=== PATIENT | female | born 1945 | race Caucasian/White ===

== ENCOUNTER 2017-02-20 12:18 | Outpatient (CLI) | payer MEDICARE ==
[2017-02-20 13:01] LABS: Anion Gap 13 mmol/L (10-20); BUN (Urea Nitrogen) 25 mg/dL (9.8-20.1); Calc. Creatinine Clearance 0 mL/min (70-130); Calcium 9.1 mg/dL (7.8-10.44); Carbon Dioxide 25 mmol/L (23-31); Chloride 107 mmol/L (98-107); Estimated GFR-MDRD 47; Glucose 169 mg/dL (83-110); Potassium 4.3 mmol/L (3.5-5.1); Sodium 141 mmol/L (136-145)
== END 2017-02-20 12:19 | disposition home or self-care (01) ==
LOC: BURLAB 12:18
PROVIDERS: ATTEND Internal Medicine Nephrology
DX: N18.3 Chronic kidney disease, stage 3 (moderate) (principal)
CPT/HCPCS: 36415; 80048

== ENCOUNTER 2020-01-23 14:52 | Emergency (ER) | payer MEDICARE | END 2020-01-23 15:14 | disposition home or self-care (01) | LOC: BURERS 14:52 | DX: Z00.00 Encounter for general adult medical examination without abnormal findings (principal); I10 Essential (primary) hypertension | CPT/HCPCS: 99281 ==

== ENCOUNTER 2020-01-28 16:18 | Emergency (ER) | payer MEDICARE ==
[2020-01-28 16:54] LABS: Bilirubin Negative (Negative); Blood, Urine Trace (Negative); Clarity Cloudy (Clear); Glucose, Urine (Dipstick) Negative (Negative); Leukocyte Large (Negative); Nitrite Negative (Negative); Protein, Urine (Dipstick) Negative (Neg-Trace); Urobilinogen 0.2 mg/dL (Less than 2)
[2020-01-28 17:00] LABS: RBC/HPF 0-3 HPF (0-3)
[2020-01-28 17:01] LABS: Bacteria/HPF 2+ HPF (None Seen); Broad Cast None Seen LPF (None Seen); Calcium Oxalate Crystals None Seen HPF (None Seen); Cellular Cast None Seen LPF (None Seen); Epithelial Cast None Seen LPF (None Seen); Fatty Cast None Seen LPF (None Seen); Mucous/LPF None Seen LPF (<2+); Other Casts None Seen LPF (None Seen); Oval Fat Bodies/HPF None Seen HPF (None Seen); Red Blood Cell Cast None Seen LPF (None Seen); Renal Epithelial None Seen HPF (None Seen); Sperm/HPF None Seen HPF (None Seen); Transitional Epithelial None Seen HPF (None Seen); Trichomonas/HPF None Seen HPF (None Seen); Triple Phosphate Crystal None Seen HPF (None Seen); Unclassified Crystals None Seen HPF (None Seen); Waxy Cast None Seen LPF (None Seen); White Blood Cell Cast None Seen LPF (None Seen); Yeast-Budding None Seen HPF (None Seen); Yeast-Hyphae None Seen HPF (None Seen)
== END 2020-01-28 17:20 | disposition home or self-care (01) ==
LOC: BURERS 16:18
DX: N39.0 Urinary tract infection, site not specified (principal); I10 Essential (primary) hypertension
CPT/HCPCS: 81003; 81015; 87077; 87086; 87186; 99283

== ENCOUNTER 2020-01-29 05:13 | Emergency (ER) | payer MEDICARE, OTHER ==
[2020-01-29 05:54] LABS: #Eosinphils 0.1 thou/uL (0.0-0.7); #Lymphocytes 0.4 thou/uL (1.20-3.40); #Monocytes 0.2 thou/uL (0.11-0.59); #Neutrophils 8.7 thou/uL (1.40-6.50); %Basophils 0.2 % (0.0-1.0); %Eosinophils 1.1 % (0.0-10.0); %Lymphocytes 3.7 % (21.0-51.0); %Monocytes 1.8 % (0.0-10.0); %Neutrophils 93.2 % (42.0-75.0); Hemoglobin 13.6 g/dL (12.0-16.0); Mean Corpuscular Hemoglobin 30.7 pg (27.0-31.0); Mean Platelet Volume 8.1 fL (7.4-10.4); Platelet Count 186 thou/uL (130-400); RBC Distribution Width 13.6 % (11.5-14.5); Red Blood Cell (RBC) Count 4.43 mill/uL (4.20-5.40); White Blood Cell (WBC) Count 9.4 thou/uL (4.8-10.8)
[2020-01-29] MEDS ORDERED: Acetaminophen 500 MG TAB ONE (05:54)
[2020-01-29] MEDS ORDERED: cefTRIAXone\\ROCEPHIN 2 GM VIAL ONE (05:54)
[2020-01-29] MEDS ORDERED: Sodium Chloride 0.9% 100 ML ONE (05:54)
[2020-01-29] MEDS ORDERED: Calcium Chloride 1 GM/10 ML Abboject SYRINGE ONE (05:54)
[2020-01-29 06:00] LABS: ALT (SGPT) 30 U/L (8-55); AST (SGOT) 26 U/L (5-34); Albumin 4.2 g/dL (3.4-4.8); Alkaline Phosphatase 60 U/L (40-110); Anion Gap 16 mmol/L (10-20); BUN (Urea Nitrogen) 25 mg/dL (9.8-20.1); Bilirubin, Total 0.8 mg/dL (0.2-1.2); Calc. Creatinine Clearance 0 mL/min (70-130); Calcium 10.3 mg/dL (7.8-10.44); Carbon Dioxide 22 mmol/L (23-31); Chloride 101 mmol/L (98-107); Estimated GFR-MDRD 33; Globulin 3.3 g/dL (2.4-3.5); Glucose 128 mg/dL (83-110); Potassium 4.1 mmol/L (3.5-5.1); Protein, Total 7.5 g/dL (6.0-8.3); Sodium 135 mmol/L (136-145)
[2020-01-29] MEDS ORDERED: Ondansetron PF 4 MG/2 ML Vial ONE (06:21)
--- NOTE | 2020-01-29 08:16 | RAD ---
PORTABLE CHEST: Date: 01/29/2020 An AP portable film at 0602 hours is compared with the 04/24/2009 study. The heart remains normal in size and the lungs are clear. There is no convincing sign of pneumonia at the moment. There is no effusion or congestion seen. IMPRESSION: No acute thoracic finding. POS: HOME
== END 2020-01-29 09:10 | disposition short-term general hospital (02) ==
LOC: BURERS 05:13
DX: N10 Acute pyelonephritis (principal); J06.9 Acute upper respiratory infection, unspecified; I10 Essential (primary) hypertension; R11.0 Nausea; Z79.899 Other long term (current) drug therapy
CPT/HCPCS: 71045; 80053; 83605; 84484; 85025; 87040; 87633; 87804 ×2; 93005; 94760; U0002; 36415; 87635; 96365; 96368; 96375; J0696; J2405; J3370; J3490

== ENCOUNTER 2021-08-04 13:50 | Emergency (ER) | payer MEDICARE ==
[2021-08-04] MEDS ORDERED: Lidocaine 1% w/Epinephrine 1:100K 20 ML VIAL ONE (14:26)
[2021-08-04] MEDS ORDERED: Bacitracin 1 PK ONE (16:15)
== END 2021-08-04 16:14 | disposition home or self-care (01) ==
LOC: BURERS 13:50
DX: S01.81XA Laceration without foreign body of other part of head, initial encounter (principal); S80.02XA Contusion of left knee, initial encounter; S00.31XA Abrasion of nose, initial encounter; I10 Essential (primary) hypertension; W19.XXXA Unspecified fall, initial encounter
CPT/HCPCS: 12014; 70450

== ENCOUNTER 2021-08-11 10:12 | Emergency (ER) | payer MEDICARE | END 2021-08-11 10:40 | disposition home or self-care (01) | LOC: BURERS 10:12 | DX: S01.81XD Laceration without foreign body of other part of head, subsequent encounter (principal); I10 Essential (primary) hypertension; X58.XXXD Exposure to other specified factors, subsequent encounter ==

== ENCOUNTER 2022-10-26 16:42 | Emergency (ER) | payer MEDICARE ==
[2022-10-26] MEDS ORDERED: Doxycycline 100 MG CAP ONE (19:38)
[2022-10-26] MEDS ORDERED: predniSONE 20 MG TAB ONE (19:38)
== END 2022-10-26 19:35 | disposition home or self-care (01) ==
LOC: BURERS 16:42
DX: J22 Unspecified acute lower respiratory infection (principal); I10 Essential (primary) hypertension
CPT/HCPCS: 71045; J7512

== ENCOUNTER 2023-10-26 09:28 | Emergency (ER) | payer MEDICARE ==
[2023-10-26] MEDS ORDERED: Acetaminophen 500 MG TAB ONE (09:52)
[2023-10-26 10:28] LABS: Mean Corpuscular HGB CONC 34.2 g/dL (32.0-36.0); Mean Corpuscular Hemoglobin 30.9 pg (27.0-31.0); Mean Corpuscular Volume 90.4 fl (78.0-98.0); Mean Platelet Volume 8.2 fL (7.4-10.4); Platelet Count 170 10x3/uL (130-400); RBC Distribution Width 13.1 % (11.5-14.5); White Blood Cell (WBC) Count 4.8 10x3/uL (4.8-10.8)
[2023-10-26 10:45] LABS: ALT (SGPT) 21 U/L (8-55); AST (SGOT) 37 U/L (5-34); Albumin 3.9 g/dL (3.4-4.8); Alkaline Phosphatase 57 U/L (40-110); Anion Gap 15 mmol/L (10-20); BUN (Urea Nitrogen) 14 mg/dL (9.8-20.1); Bilirubin, Total 0.5 mg/dL (0.2-1.2); Calc. Creatinine Clearance 0 mL/min (70-130); Carbon Dioxide 21 mmol/L (23-31); Chloride 99 mmol/L (98-107); Estimated GFR 53; Globulin 3.8 g/dL (2.4-3.5); Glucose 121 mg/dL (83-110); Magnesium 1.6 mg/dL (1.6-2.6); Potassium 4.4 mmol/L (3.5-5.1); Protein, Total 7.7 g/dL (5.8-8.1); Sodium 131 mmol/L (136-145)
[2023-10-26 10:46] LABS: Bilirubin Negative (Negative); Blood, Urine Moderate (Negative); Clarity Clear (Clear); Glucose, Urine (Dipstick) Negative (Negative); Ketone, Urine Trace mg/dL (Negative); Leukocyte Negative (Negative); Nitrite Negative (Negative); Protein, Urine (Dipstick) 100 mg/dL (Neg-Trace); Specific Gravity, Urine 1.025 (1.005-1.030); Urobilinogen 0.2 mg/dL (Less than 2); pH, Urine 5.5 (5.0-9.0)
[2023-10-26 10:55] LABS: Band 11 % (5-11); Lymphocytes 6 % (21-51); MDiff Complete? YES; Monocytes 2 % (0-10); Neutrophil 80 % (42-75); Platelet Adequacy Comment Appears Adequate
[2023-10-26 11:06] LABS: SARS-CoV-2 NAA Rapid Test Not Detected (NotDetected)
[2023-10-26 11:06] LABS: Bacteria/HPF Rare-Few HPF (None Seen); CAUTI Indications for Culture Fever or rigors; WBC/HPF None Seen HPF (0-3)
[2023-10-26 11:07] LABS: Urine Culture Reflex No No
[2023-10-26] MEDS ORDERED: Sodium Chloride 0.9% 100 ML ONE (11:13)
[2023-10-26] MEDS ORDERED: cefTRIAXone (ROCEPHIN) 1 GM VIAL ONE (11:13)
== END 2023-10-26 20:53 | disposition short-term general hospital (02) ==
LOC: BURERS 09:28
DX: J18.9 Pneumonia, unspecified organism (principal); R09.02 Hypoxemia; I10 Essential (primary) hypertension; E11.9 Type 2 diabetes mellitus without complications
CPT/HCPCS: 71046; 80053; 81001; 83605; 83735; 83880; 85025; 87040; 87804 ×2; U0002; 96374; J0696; J3490

== ENCOUNTER 2024-10-07 06:44 | Emergency (ER) | payer MEDICARE | END 2024-10-07 08:10 | disposition home or self-care (01) | LOC: BURERS 06:44 | DX: J01.90 Acute sinusitis, unspecified (principal); I10 Essential (primary) hypertension; E11.9 Type 2 diabetes mellitus without complications | CPT/HCPCS: 71045 ==

== ENCOUNTER 2024-10-11 09:38 | Emergency (ER) | payer MEDICARE ==
[2024-10-11 10:19] LABS: #Basophils 0.1 thou/uL (0.0-0.2); #Eosinophils 0.1 thou/uL (0.0-0.7); #Lymphocytes 1.1 thou/uL (1.20-3.40); #Monocytes 0.4 thou/uL (0.11-0.59); #Neutrophils 4.4 thou/uL (1.40-6.50); %Basophils 0.9 % (0.0-1.0); %Lymphocytes 17.9 % (21.0-51.0); %Monocytes 5.8 % (0.0-10.0); %Neutrophils 73.3 % (42.0-75.0); Hematocrit 35.3 % (36.0-47.0); Hemoglobin 11.6 g/dL (12.0-16.0); Mean Corpuscular HGB CONC 32.7 g/dL (32.0-36.0); Mean Corpuscular Hemoglobin 30.3 pg (27.0-31.0); Mean Corpuscular Volume 92.5 fl (78.0-98.0); Mean Platelet Volume 7.1 fL (7.4-10.4); Platelet Count 210 10x3/uL (130-400); RBC Distribution Width 14.3 % (11.5-14.5); Red Blood Cell (RBC) Count 3.82 mill/uL (4.20-5.40)
[2024-10-11 10:37] LABS: ALT (SGPT) 27 U/L (8-55); AST (SGOT) 27 U/L (5-34); Albumin 3.4 g/dL (3.4-4.8); Alkaline Phosphatase 56 U/L (40-110); Anion Gap 15 mmol/L (10-20); BUN (Urea Nitrogen) 21 mg/dL (9.8-20.1); Bilirubin, Total 0.5 mg/dL (0.2-1.2); Calc. Creatinine Clearance 0 mL/min (70-130); Calcium 9.9 mg/dL (7.8-10.44); Carbon Dioxide 23 mmol/L (23-31); Chloride 107 mmol/L (98-107); Estimated GFR 50; Globulin 3.3 g/dL (2.4-3.5); Glucose 131 mg/dL (83-110); Potassium 3.7 mmol/L (3.5-5.1); Protein, Total 6.7 g/dL (5.8-8.1); Sodium 141 mmol/L (136-145)
[2024-10-11 10:40] LABS: Prothrombin Time 13.5 sec (12.0-14.7)
[2024-10-11 10:41] LABS: PTT 29.9 sec (22.9-36.1)
[2024-10-11 10:44] LABS: Magnesium 1.8 mg/dL (1.6-2.6)
[2024-10-11 11:47] LABS: Critical Call Chem Troponin I NUR.ST17 AT 1146
[2024-10-11 12:01] LABS: Bilirubin Negative (Negative); Blood, Urine Negative (Negative); Clarity Clear (Clear); Glucose, Urine (Dipstick) Negative (Negative); Ketone, Urine Negative (Negative); Leukocyte Negative (Negative); Nitrite Negative (Negative); Protein, Urine (Dipstick) Negative (Neg-Trace); Specific Gravity, Urine 1.015 (1.005-1.030); Urobilinogen 0.2 mg/dL (Less than 2); pH, Urine 6.5 (5.0-9.0)
[2024-10-11] MEDS ORDERED: Furosemide 40 MG (4 mL) VIAL ONE (12:11)
[2024-10-11] MEDS ORDERED: Potassium Bicarbonate/Cit Ac 20 MEQ TAB ONE (12:11)
[2024-10-11] MEDS ORDERED: Enoxaparin 100 MG (1 mL) SYRINGE ONE (12:12)
[2024-10-11] MEDS ORDERED: Magnesium 2 GM/50 ML BAG (IN WATER) ONE (12:12)
[2024-10-11 12:16] LABS: Bacteria/HPF Rare-Few HPF (None Seen); CAUTI Indications for Culture Dysuria,urgency,freq; RBC/HPF None Seen HPF (0-3); Squamous Epithelial 0-3 HPF (0-3); WBC/HPF None Seen HPF (0-3)
[2024-10-11 12:17] LABS: Urine Culture Reflex No No
[2024-10-11] MEDS ORDERED: Iopamidol 370 76% 100 ML VIAL ONE (14:26)
== END 2024-10-11 13:00 | disposition short-term general hospital (02) ==
LOC: BURERS 09:38
DX: S05.11XA Contusion of eyeball and orbital tissues, right eye, initial encounter (principal); I11.0 Hypertensive heart disease with heart failure; I50.9 Heart failure, unspecified; E11.9 Type 2 diabetes mellitus without complications; R79.89 Other specified abnormal findings of blood chemistry; I48.91 Unspecified atrial fibrillation; Z55.6 Problems related to health literacy; Z79.899 Other long term (current) drug therapy; W01.0XXA Fall on same level from slipping, tripping and stumbling without subsequent striking against object, initial encounter
CPT/HCPCS: 70450; 71046; 71275; 81001; 83735; 83880; 84484; 85379; 85610; 85730; 93005; 96365; 96372; 96375; 99285; J1650; J1940; J3475; Q9967; 80053; 84443; 85025

== ENCOUNTER 2024-10-15 08:34 | Emergency (ER) | payer MEDICARE ==
[2024-10-15 12:57] LABS: Bilirubin Negative (Negative); Blood, Urine Trace (Negative); Clarity Cloudy (Clear); Glucose, Urine (Dipstick) Negative (Negative); Ketone, Urine Negative (Negative); Leukocyte Moderate (Negative); Nitrite Positive (Negative); Protein, Urine (Dipstick) Trace mg/dL (Neg-Trace); Specific Gravity, Urine 1.015 (1.005-1.030); Urobilinogen 0.2 mg/dL (Less than 2); pH, Urine 5.5 (5.0-9.0)
[2024-10-15 13:03] LABS: Bacteria/HPF 3+ HPF (None Seen); CAUTI Indications for Culture Dysuria,urgency,freq; RBC/HPF 0-3 HPF (0-3); Squamous Epithelial 0-3 HPF (0-3)
[2024-10-15 13:05] LABS: Urine Culture Reflex Yes Yes
== END 2024-10-15 12:27 | disposition home or self-care (01) ==
LOC: BURERS 08:34
DX: S22.32XA Fracture of one rib, left side, initial encounter for closed fracture (principal); E11.9 Type 2 diabetes mellitus without complications; I11.0 Hypertensive heart disease with heart failure; I50.9 Heart failure, unspecified; I48.91 Unspecified atrial fibrillation; W18.30XA Fall on same level, unspecified, initial encounter; Y93.01 Activity, walking, marching and hiking
CPT/HCPCS: 71250; 81001; 87077; 87086; 87186